=== PATIENT | female | born 1985 | race Caucasian/White ===

== ENCOUNTER 2022-06-29 18:56 | Emergency (ER) | payer OTHER, SELFPAY ==
[2022-06-29 19:00] VITALS: BP 151/85; PULSE 87; RESP 18; TEMP 36.6; O2SAT 98
--- NOTE | 2022-06-29 20:05 | ED.ANIMALBIT ---
HPI - Animal Bite General Chief Complaint: Animal Bite Stated Complaint: cat bite Time Seen by Provider: 06/29/22 20:04 History of Present Illness HPI narrative: 36-year-old female presents to the emergency room for evaluation of a cat bite to her left index finger. States that she was bit by her cat at 8:00 this morning. States cat's vaccinations are up-to-date. Noticed swelling and redness to the base of her left index finger. Related Data Allergies Allergy/AdvReac Type Severity Reaction Status Date / Time No Known Allergies Allergy Verified 01/15/17 06:21 Review of Systems Review of Systems: CONSTITUTIONAL: Denies fever, chills, or sweats. EYES: Denies visual changes, redness, or discharge. ENT: Denies rhinorrhea, congestion, sore throat, or otalgia. CARDIOVASCULAR: Denies chest pain, palpitations, or edema. RESPIRATORY: Denies cough or dyspnea. GASTROINTESTINAL: Denies abdominal pain, nausea, vomiting, or diarrhea. GENITOURINARY: Denies dysuria or hematuria. SKIN: Denies rash or itching. MUSCULOSKELETAL: Denies back pain, joint pain, or myalgia. NEUROLOGIC: Denies headache, numbness, dizziness, or weakness. PSYCHIATRIC: Denies anxiety or depression. [facility] Family History Family History Grandparent Family history of malignant neoplasm of breast Social History Social History Smoking status: Never smoker Second hand tobacco smoke exposure: No Alcohol intake: current Exam Narrative: GENERAL: Well-appearing, well-nourished, no physical limitations, and in no acute distress. HEAD: Normocephalic, atraumatic. EYES: Conjunctivae normal, PERRLA and EOMI. CHEST: Clear to auscultation. No respiratory distress. No wheezes rales or rhonchi. HEART: Regular rate and rhythm. No murmur heard. Normal peripheral pulses. EXTREMITIES: Left index finger: Puncture wound to the dorsal side of the distal phalanx. Mild erythema and soft tissue swelling to the finger with some lymphangitic spread proximal to the MCP joint. Has full range of motion of the finger. Neurovascular is intact distally SKIN: Warm, dry, no rash. No noted wounds NEURO: No focal deficits. Alert and oriented x3. MAEW. CN's II-XI intact bilaterally, normal gait PSYCH: Cooperative. Normal mood and affect. Course Vital Signs Vital signs: Vital Signs Temperature 36.6 C 06/29/22 19:00 Pulse Rate 87 06/29/22 19:00 Respiratory Rate 18 06/29/22 19:00 Blood Pressure 151/85 H 06/29/22 19:00 Pulse Oximetry 98 06/29/22 19:00 Oxygen Delivery Room Air 06/29/22 19:00 Temperature 36.6 C 06/29/22 19:00 Pulse Rate 87 06/29/22 19:00 Respiratory Rate 18 06/29/22 19:00 Blood Pressure 151/85 H 06/29/22 19:00 Pulse Oximetry 98 06/29/22 19:00 Oxygen Delivery Room Air 06/29/22 19:00 Discharge Plan Discharge Clinical Impression: Bite by animal, Cat bite Patient Disposition: Home, Self-Care Condition: Stable Instructions: Antibiotic Form, Animal Bite (ED) Prescriptions: New amoxicillin-pot clavulanate 875-125 mg tablet 1 tablet PO Q12H 10 Days Qty: 20 0RF Follow-up/Referrals: Abdi Blanton DO [Primary Care Provider] - Time of Disposition: 20:07
== END 2022-06-29 20:17 | disposition home or self-care (01) ==
PROVIDERS: Emergency Provider Nurse Practitioner Family; PCP Internal Medicine
DX: S61.251A Open bite of left index finger without damage to nail, initial encounter (principal); W55.01XA Bitten by cat, initial encounter
CPT/HCPCS: 99283